=== PATIENT | female | born 2000 | race Caucasian/White ===

== ENCOUNTER → 2018-01-06 09:52 | Outpatient (CLI) | payer OTHER, SELFPAY ==
[2018-01-06] VITALS (11 sets, daily range): BP systolic 110–146; BP diastolic 67–88; PULSE 61–98; RESP 16–18; TEMP 36.1–36.9; O2SAT 95–100; BMI 30.1
[2018-01-06] MEDS: 0.9% Normal Saline 1,000 ML 150 ML IV (10:16)
[2018-01-06] MEDS: LORazepam 2 MG/ML Syringe 1 MG IV (10:22)
[2018-01-06] MEDS: Ondansetron 4 MG/2 ML Vial 8 MG IV (10:45)
[2018-01-06] MEDS: MethylPREDNISolone 125 MG/2 ML Vial IV (11:03)
[2018-01-06] MEDS: Ketorolac 30 MG/ML Syringe IV ×2 (11:06→14:04)
[2018-01-06] MEDS: Dihydroergotamine 1 MG/ML Ampul 0.5 MG IV ×2 (11:17→11:46)
[2018-01-06] MEDS: Dihydroergotamine 1 MG/ML Ampul IV (14:52)
== END ==
PROVIDERS: Family Provider Pediatrics; PCP Pediatrics
DX: G43.119 Migraine with aura, intractable, without status migrainosus (principal)
CPT/HCPCS: 96361 ×5; 96374; 96375 ×4; J7030; A4216; J1110; J2405

== ENCOUNTER → 2018-01-07 09:46 | Outpatient (CLI) | payer OTHER, SELFPAY ==
[2018-01-07] VITALS (9 sets, daily range): BP systolic 109–133; BP diastolic 67–87; PULSE 67–98; RESP 16–18; TEMP 36.4–36.6; O2SAT 96–99; BMI 32.1
[2018-01-07] MEDS: 0.9% Normal Saline 1,000 ML 150 ML IV (10:19)
[2018-01-07] MEDS: LORazepam 2 MG/ML Syringe 1 MG IV (10:31)
[2018-01-07] MEDS: Ondansetron 4 MG/2 ML Vial 8 MG IV (10:48)
[2018-01-07] MEDS: Ketorolac 30 MG/ML Syringe IV ×2 (10:52→13:54)
[2018-01-07] MEDS: MethylPREDNISolone 125 MG/2 ML Vial IV (10:52)
[2018-01-07] MEDS: Dihydroergotamine 1 MG/ML Ampul 0.5 MG IV ×2 (11:12→11:48)
[2018-01-07] MEDS: Dihydroergotamine 1 MG/ML Ampul IV (14:59)
== END ==
PROVIDERS: Family Provider Pediatrics; PCP Pediatrics; Visit Provider Psychiatry & Neurology Neurology
DX: G43.119 Migraine with aura, intractable, without status migrainosus (principal)
CPT/HCPCS: 96361 ×5; 96374; 96375 ×4; J7030; A4216; J1110; J2405

== ENCOUNTER 2018-01-08 08:05 | Outpatient (CLI) | payer OTHER, SELFPAY ==
[2018-01-08] VITALS (13 sets, daily range): BP systolic 124–155; BP diastolic 66–91; PULSE 69–85; RESP 14–28; TEMP 36.7–36.9; O2SAT 96–98
[2018-01-08] MEDS: 0.9% Normal Saline 1,000 ML 150 ML IV (08:57)
[2018-01-08] MEDS: LORazepam 2 MG/ML Syringe 1 MG IV (09:00)
[2018-01-08] MEDS: Ondansetron 4 MG/2 ML Vial 8 MG IV (09:20)
[2018-01-08] MEDS: 0.9% NaCl Peripheral Flush Adult/Peds IV (09:24)
[2018-01-08] MEDS: Ketorolac 30 MG/ML Syringe IV ×2 (09:30→12:30)
[2018-01-08] MEDS: Dihydroergotamine 1 MG/ML Ampul 0.5 MG IV ×2 (09:30→10:00)
[2018-01-08] MEDS: MethylPREDNISolone 125 MG/2 ML Vial IV (09:30)
[2018-01-08] MEDS: Dihydroergotamine 1 MG/ML Ampul IV (12:30)
== END 2018-01-08 13:10 | disposition home or self-care (01) ==
LOC: MEDOUTP 08:07 → ICU 08:44
PROVIDERS: Family Provider Pediatrics; PCP Pediatrics
DX: G43.119 Migraine with aura, intractable, without status migrainosus (principal)
CPT/HCPCS: 96361 ×4; 96374; 96375 ×4; J7030; A4216; J1110; J2405

== ENCOUNTER 2018-05-21 09:04 | Emergency (ER) | payer OTHER, SELFPAY ==
[2018-05-21 09:05] VITALS: BP 127/72; PULSE 97; RESP 18; TEMP 36.6; O2SAT 98; BMI 34.0
[2018-05-21 09:46] LABS: Red Blood Cells-Urine 0 SEEN /hpf (0-5)
[2018-05-21 09:50] LABS: Internal QC Validated? YES +Cl - CLEAR BKGD; Pregnancy, Urine Negative Negative
[2018-05-21 09:57] LABS: Absolute Lymphocyte Count 1.85 X10^3/ul (0.83-4.51); Absolute Neutrophil Count 7.7 X10^3/uL (2.0-7.7); Basophil# 0.05 X10^3/uL; Basophil% 0.5 % (0-1); Hematocrit 42.4 % (37-47); Hemoglobin 13.8 g/dl (12.0-15.0); Lymphocyte # 1.85 X10^3/ul (4.0); Lymphocyte % 17.7 % (19-41); Mean Corp Hgb Conc 32.5 g/gl (32-36); Mean Corpuscular Hgb 28.3 pg (27.0-32.0); Mean Corpuscular Volume 87.1 fL (81-99); Mean Platelet Vol. 9.2 fl (6.2-12.0); Monocyte# 0.75 X10^3/uL; Monocyte% 7.2 % (0-10); Neutrophil # 7.68 X10^3/uL (2.7-7.7); Neutrophil % 73.4 % (47-70); Platelet Count 327 K/mm3 (150-450); RBC Distribution Width CV 12.9 % (11.6-14.6); RBC Distribution Width SD 41.3 fl (35.1-43.9); Red Blood Count 4.87 M/mm3 (4.2-5.4); White Blood Count 10.5 K/mm3 (4.4-11.0)
[2018-05-21 09:58] LABS: POSITIVE COUNT NO; POSITIVE DIFFERENTIAL NO; POSITIVE MORPHOLOGY NO
[2018-05-21 10:01] LABS: Color, Urine Yellow (Yellow); Glucose, Dipstick Normal (Normal); Ketone-Dipstick 5 mg/dl (Negative); Leukocyte Esterase-Dipstick 500 /ul (Negative); Nitrite-Dipstick Negative (Negative); Occult Blood-Urine 250 /ul (Negative); Protein-Dipstick 30 mg/dl (Negative); Specific Gravity, Urine 1.025 (1.002-1.030); Urine Bilirubin Dipstick 1 mg/dL (Negative); Urine Clarity Cloudy (Clear); Urine Urobilinogen 1 mg/dl (Normal)
[2018-05-21 10:03] LABS: Bacteria RARE /hpf (None Seen); Mucous, Urine 2+ /hpf (<or=2+); Squamous Epithelial Cells - UA 10-25 SEEN /hpf (5-10); White Blood Cells 50-100 SEEN /hpf (0-5)
--- NOTE | 2018-05-21 10:09 | CT_ITS ---
STUDY: CT ABDOMEN AND PELVIS WITHOUT CONTRAST REASON FOR EXAM: Female, 17 years old. Right-sided flank pain. RADIATION DOSAGE (If Supplied By Facility): CTDIvol = ( 9.43 ) mGy, DLP = ( 508.65 ) mGycm TECHNIQUE: Transaxial images were obtained from the dome of the diaphragm to the symphysis pubis without oral contrast, and without intravenous contrast. Sagittal and coronal images were reconstructed. Individualized dose optimization techniques were used for this CT. COMPARISON: Prior comparison studies are not available for review at this time. FINDINGS: The visualized lung bases are unremarkable. The visualized portions of the heart are within normal limits. Normal liver. Normal gallbladder and extrahepatic biliary system. Normal spleen. Normal pancreas. Normal bilateral adrenal glands. Normal right kidney. Normal left kidney. Normal visualized stomach. There is no evidence for dilated bowel, ascites or pneumoperitoneum. Small bowel has a grossly normal appearance. Stool is visible throughout the colon with scattered diverticula. The appendix is visualized and appears normal. Normal abdominal aorta. The IVC is slitlike suggesting hypovolemia and/or dehydration. Normal retroperitoneum. Normal urinary bladder. Normal visualized uterus. There is a small umbilical hernia containing fat. Normal osseous structures. CT/Abdomen/Pelvis without Cont IMPRESSION: No CT evidence of acute intra-abdominal disease. Electronically Signed: Lisbeth Everett MD at 10:48 EST , Service support ,
[2018-05-21 10:10] LABS: ALB/GLOB Ratio 0.9 RATIO (0.9-2.4); AST(SGOT) 9 U/L (15-37); Alanine Aminotransfer ALT/SGPT 25 U/L (13-56); Albumin, Serum 3.7 g/dL (3.2-5.0); Alkaline Phosphatase 74 U/L (45-117); Anion Gap 9 (5-15); BUN 10 mg/dL (7-18); Calcium,Total 8.7 mg/dL (8.5-10.1); Chloride 106 mmol/L (98-107); Creatinine, Serum 0.77 mg/dL (0.55-1.02); EST Glomerular Filtration Rate 102 mL/min (>60); Est Glom Filt Rate - Afr Amer 124 mL/min (>60); Estimated Creatinine Clearance 88.68 ml/min; Globulin 3.9 g/dL (2.2-4.2); Glucose 92 mg/dL (74-106); Potassium 3.7 mmol/L (3.5-5.1); Protein, Total 7.6 g/dL (6.4-8.2); Sodium Level 140 mmol/L (136-145); Thyroid Stim Hormone (TSH) 2.64 uIU/mL (0.358-3.74)
[2018-05-21] MEDS: 0.9% Normal Saline 1,000 ML 999 ML IV (11:43)
--- NOTE | 2018-05-21 12:19 | ED.DCSUM_ITS ---
- ER Visit Summary Date of Service: 05/21/18 Chief Complaint: Flank pain History of Present Illness: The patient is a 17 F who states for the past week she has felt fatigued. Nauseated. She saw her doctor had blood work done. She called to arrange follow-up on those blood work today also noting right lower quadrant pain radiating to her flank. She states she had a temperature last night of 99.8. She denies any urinary symptoms. She tells me that that she was advised to come to the emergency department further evaluation. She states that she believes she may have appendicitis. Physical Examination: Afebrile vital signs are stable Gen: Well-nourished well-developed Head: Normocephalic atraumatic Eyes: Perrl EOMI ENT: TMs clear no rhinorrhea moist mucous membranes Neck: Supple no lymphadenopathy no JVD nontender CVS: Regular rate rhythm no murmurs normal S1-S2 Respiratory: No distress clear to auscultation bilaterally chest nontender Abdomen: Soft tenderness in the suprapubic right lower quadrant without guarding or rebound nondistended normal bowel sounds no masses Back: Nontender Extremity: Nontender no edema Skin: Normal color no rash Neuro: alert orientated ?3 CN II-XII intact normal strength sensation reflexes gait cerebellar Psych: Normal affect normal mood Test Results: CBC CMP is normal. Urinalysis 50-100 white cells and positive bacteria 10-25 epithelial cells however. Patency test is negative. CT of the abdomen pelvis demonstrated a normal appendix. No obvious ureterolithiasis. Emergency Department Course and Treatment: Patient is allergic to Bactrim/sulfa medicine. She was placed on Macrobid. Follow-up with primary care. Impression: 1. Acute abdominal pain 2. Acute cystitis This note was generated with [employer] dictation software. It may contain incorrect words, spelling, and punctuation that were not noted in review of the chart prior to signing ED Disposition - Plan for ED Patient: Disposition: Home or Assisted Living Chief Complaint: Abd Pain Instructions: ED UTI Cystitis Female Prescriptions: Nitrofurantoin Macrocrystals [Macrobid] 100 mg PO Q12 #10 cap Referrals: Dario Velez MD [Primary Care Provider] - 1 Week
== END 2018-05-21 13:18 | disposition home or self-care (01) ==
PROVIDERS: Emergency Provider Emergency Medicine; Family Provider Pediatrics; PCP Pediatrics
DX: N30.00 Acute cystitis without hematuria (principal); G43.909 Migraine, unspecified, not intractable, without status migrainosus; E66.9 Obesity, unspecified; Z79.899 Other long term (current) drug therapy
CPT/HCPCS: 74176; 80053; 81001; 81025; 84443; 85025; 87086; 87088; 87186; 96360; 96361; 99283; J7030; A4216

== ENCOUNTER → 2018-11-11 14:22 | Outpatient (CLI) | payer OTHER, SELFPAY ==
[2018-11-11 15:24] LABS: Absolute Lymphocyte Count 2.34 X10^3/ul (0.83-4.51); Absolute Neutrophil Count 4.9 X10^3/uL (2.0-7.7); Basophil# 0.05 X10^3/uL; Basophil% 0.6 % (0-1); Eosinophil# 0.09 X10^3/uL; Eosinophils% 1.1 % (0-5); Hematocrit 44.6 % (37-47); Hemoglobin 14.7 g/dl (12.0-15.0); Lymphocyte # 2.34 X10^3/ul (4.0); Lymphocyte % 29.8 % (19-41); Mean Corpuscular Hgb 29.1 pg (27.0-32.0); Mean Corpuscular Volume 88.1 fL (81-99); Mean Platelet Vol. 9.3 fl (6.2-12.0); Monocyte# 0.47 X10^3/uL; Neutrophil % 62.4 % (47-70); POSITIVE COUNT NO; POSITIVE DIFFERENTIAL NO; POSITIVE MORPHOLOGY NO; Platelet Count 359 K/mm3 (150-450); RBC Distribution Width CV 12.6 % (11.6-14.6); RBC Distribution Width SD 40.6 fl (35.1-43.9); Red Blood Count 5.06 M/mm3 (4.2-5.4); White Blood Count 7.9 K/mm3 (4.4-11.0)
[2018-11-11 15:54] LABS: ALB/GLOB Ratio 1.1 RATIO (0.9-2.4); AST(SGOT) 11 U/L (15-37); Alanine Aminotransfer ALT/SGPT 23 U/L (13-56); Albumin, Serum 3.1 g/dL (3.2-5.0); Alkaline Phosphatase 56 U/L (45-117); Anion Gap 2 (5-15); BUN 12 mg/dL (7-18); BUN/Creat Ratio 17.9 RATIO (10-20); Calcium,Total 8.1 mg/dL (8.5-10.1); Chloride 109 mmol/L (98-107); Creatinine, Serum 0.67 mg/dL (0.55-1.02); EST Glomerular Filtration Rate 119 mL/min (>60); Est Glom Filt Rate - Afr Amer 144 mL/min (>60); Globulin 2.9 g/dL (2.2-4.2); Glucose 87 mg/dL (74-106); Magnesium 1.9 mg/dL (1.6-2.6); Potassium 3.6 mmol/L (3.5-5.1); Sodium Level 139 mmol/L (136-145); Thyroid Stim Hormone (TSH) 1.71 uIU/mL (0.358-3.74)
== END ==
PROVIDERS: Family Provider Family Medicine; PCP Family Medicine; Referring Provider Family Medicine; Visit Provider Family Medicine
DX: R00.0 Tachycardia, unspecified (principal)
CPT/HCPCS: 36415; 80053; 83735; 84443; 85025

== ENCOUNTER → 2019-01-06 15:33 | Outpatient (CLI) | payer OTHER, SELFPAY | PROVIDERS: Family Provider Family Medicine; PCP Family Medicine; Referring Provider Family Medicine; Visit Provider Family Medicine | DX: N39.0 Urinary tract infection, site not specified (principal) | CPT/HCPCS: 87077; 87086; 87088; 87186 ==

== ENCOUNTER → 2019-02-25 17:55 | Outpatient (CLI) | payer OTHER, SELFPAY ==
[2019-02-25 22:02] LABS: Chlamydia Trachomatis by PCR Negative (Negative); Neisserai gonorrhoeae by PCR Negative (Negative); Probe Check PASS; Sample Adequacy Control PASS; Specimen Processing Control PASS
== END ==
PROVIDERS: Family Provider Family Medicine; PCP Family Medicine; Referring Provider Family Medicine; Visit Provider Family Medicine
DX: N39.0 Urinary tract infection, site not specified (principal)
CPT/HCPCS: 87077; 87086; 87088; 87186; 87491; 87591

== ENCOUNTER → 2019-08-03 13:54 | Outpatient (CLI) | payer OTHER, SELFPAY ==
--- NOTE | 2019-08-03 13:57 | US_ITS ---
STUDY: RENAL ULTRASOUND - COMPLETE REASON FOR EXAM: Female, 18 years old. RECURRING UTI TECHNIQUE: Ultrasound evaluation of the kidneys was performed with real-time and static perez-scale imaging. COMPARISON: CT abdomen and pelvis from 05/21/2018 FINDINGS: RIGHT KIDNEY: Normal location of the right kidney, which is normal in size. The right kidney measures 11.3 x 5.6 x 5.3 cm. There is a normal cortex of the right kidney. The renal cortex measures 2 cm. There is no right renal mass or cyst. There are no right renal calculi. There is no right hydronephrosis. DISTAL RIGHT URETER: There is non-visualization of the distal right ureter. There is no demonstrated right ureterovesical junction calculus. There is a visualized right ureteral jet. LEFT KIDNEY: Normal location of the left kidney, which is normal in size. The left kidney measures 11.9 x 5.6 x 5 cm. There is a normal cortex of the left kidney. The renal cortex measures 1.8 cm. There is no left renal mass or cyst. There are no left renal calculi. There is no left hydronephrosis. DISTAL LEFT URETER: There is non-visualization of the distal left ureter. There is no demonstrated left ureterovesical junction calculus. There is a visualized left ureteral jet. I.V.C.: The IVC is patent. BLADDER: The distended urinary bladder has a volume of 48.2 ml. . There is a normal wall thickness of the distended urinary bladder. There is no demonstrated mass within the urinary bladder. There are no demonstrated bladder calculi. US/Kidney and Bladder IMPRESSION: Normal ultrasound of the kidneys and urinary bladder. Electronically Signed: Scott Dunn, at 4:27 EST Tel , Service support ,
== END ==
PROVIDERS: PCP Family Medicine; Referring Provider Urology; Visit Provider Urology
DX: N39.0 Urinary tract infection, site not specified (principal)
CPT/HCPCS: 76770

== ENCOUNTER → 2019-12-29 17:04 | Outpatient (CLI) | payer OTHER, MEDICAID, SELFPAY ==
--- NOTE | 2019-12-29 17:10 | RAD_ITS ---
STUDY: X-RAY - LEFT FOOT CLINICAL: Female, 19 years old. Bilateral heel pain TECHNIQUE: 3 view(s) of the foot. COMPARISON: None. FINDINGS: Normal talus, calcaneus, and tarsal bones. Normal visualized subtalar, talonavicular, calcaneocuboid, tarsal and tarsometatarsal articulations. Normal metatarsi. Normal metatarsophalangeal joint of the great toe. Normal tibial and fibular sesamoid bones. Normal interphalangeal joint of the great toe. Normal phalanges of the great toe. Normal second through fifth metatarsophalangeal joints. Normal interphalangeal joints and phalanges of the lesser toes. The soft tissue structures are unremarkable. RAD/Foot min 3 Views IMPRESSION: Normal x-ray examination of the foot. Electronically Signed: Beka Medrano MD at 7:42 EDT , Service support ,
--- NOTE | 2019-12-29 17:10 | RAD_ITS ---
STUDY: X-RAY - RIGHT FOOT CLINICAL: Female, 19 years old. Bilateral heel pain TECHNIQUE: 3 view(s) of the foot. COMPARISON: None. FINDINGS: Normal talus, calcaneus, and tarsal bones. Normal visualized subtalar, talonavicular, calcaneocuboid, tarsal and tarsometatarsal articulations. Normal metatarsi. Normal metatarsophalangeal joint of the great toe. Normal tibial and fibular sesamoid bones. Normal interphalangeal joint of the great toe. Normal phalanges of the great toe. Normal second through fifth metatarsophalangeal joints. Normal interphalangeal joints and phalanges of the lesser toes. The soft tissue structures are unremarkable. RAD/Foot min 3 Views IMPRESSION: Normal x-ray examination of the foot. Electronically Signed: Beka Medrano MD at 7:43 EDT , Service support ,
== END ==
PROVIDERS: PCP Family Medicine; Referring Provider Family Medicine; Visit Provider Family Medicine
DX: M79.672 Pain in left foot (principal); M79.671 Pain in right foot
CPT/HCPCS: 73630

== ENCOUNTER 2020-12-16 11:30 | Emergency (ER) | payer BC, MEDICAID, SELFPAY ==
[2020-12-16 11:30] VITALS: BP 140/93; PULSE 96; RESP 18; TEMP 36.6; O2SAT 98; BMI 37.2
--- NOTE | 2020-12-16 12:51 | US_ITS ---
STUDY: ULTRASOUND OF THE FEMALE PELVIS - COMPLETE REASON FOR EXAM: Female, 20 years old. Pelvic pain, vaginal bleeding , ? IUD placement LMP: 11/14/2020 TECHNIQUE: Transvaginal TECHNICAL QUALITY: Adequate. COMPARISON: None. FINDINGS: The uterus is anteverted and is in a midline position. The uterus measures 7.2 cm x 4.3 cm x 3.4 cm. Normal uterine cervix. The endometrium measures 4 mm in thickness, and is hyperechoic. There is no demonstrated endometrial mass. There is no demonstrated myometrial mass. I.U.D. - The patient does have an I.U.D. . It is in the lower uterine segment. The right ovary is visualized. The right ovary measures 4.1 cm x 2.9 cm x 1.6 cm. There is no right ovarian cyst or ovarian mass. There is no visualized right adnexal mass or complex lesion. There is normal arterial and normal venous vascularity. The left ovary is visualized. The left ovary measures 2.2 cm x 2.2 cm x 2.4 cm. There is no left ovarian cyst or ovarian mass. There is no visualized left adnexal mass or complex lesion. There is normal arterial and normal venous vascularity. There is no fluid in the cul-de-sac. US/Transvaginal Non- IMPRESSION: IUD is within the lower uterine segment. Electronically Signed: Triston Brewer MD at 14:35 EDT , Service support ,
[2020-12-16 13:26] LABS: Mucous, Urine 0 SEEN /hpf (<or=2+); Squamous Epithelial Cells - UA 0 SEEN /hpf (5-10); White Blood Cells 0 SEEN /hpf (0-5)
[2020-12-16 13:28] LABS: Color, Urine Yellow (Yellow); Glucose, Dipstick Normal (Normal); Ketone-Dipstick Negative (Negative); Leukocyte Esterase-Dipstick 25 /ul (Negative); Nitrite-Dipstick Negative (Negative); Occult Blood-Urine 250 /ul (Negative); Protein-Dipstick Negative (Negative); Urine Bilirubin Dipstick Negative (Negative); Urine Clarity Sl. Cloudy (Clear); Urine Urobilinogen Normal (Normal)
[2020-12-16 13:36] LABS: Red Blood Cells-Urine > 100 SEEN /hpf (0-5)
[2020-12-16 13:37] LABS: Bacteria 1+ /hpf (None Seen); Internal QC Validated? YES +Cl - CLEAR BKGD; Pregnancy, Urine Negative Negative
[2020-12-16 14:37] VITALS: RESP 16
[2020-12-16 16:39] VITALS: BP 144/98; PULSE 88; RESP 17; O2SAT 98
--- NOTE | 2020-12-16 16:39 | EDS_ITS ---
HPI History of Present Illness Chief Complaint: Abd Pain Informant: patient Narrative Narrative: Patient is evaluated for abnormal lower pelvic cramping and bleeding. Patient had IUD placed in April 2020. States for the past month she has had increased cramping. For the past few days she had increased bleeding. She states it is bright red and thinner blood than normal. She was seen at [facility] yesterday where they said nothing look infected. They were able to visualize the strings but were concerned about the placement of the IUD. She was told she needed a ultrasound. 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 She denies any urinary symptoms. No lightheadedness or dizziness. No other complaints at this time. [facility] Medical History Migraines Tachycardia Home Medications medroxyprogesterone 150 mg IM .[id number] 01/12/16 [History Last Taken 01/11/16] diphenhydramine HCl [Benadryl] 25 mg PO Q6H PRN 05/21/18 [History Last Taken Unknown] fluoxetine 20 mg PO QHS 05/21/18 [History Last Taken 05/20/18] metoclopramide HCl 5 mg PO Q6 PRN 05/21/18 [History Last Taken Unknown] naratriptan 2.5 mg PO DAILY PRN 05/21/18 [History Last Taken Unknown] nitrofurantoin monohyd/m-cryst 100 mg PO Q12 #10 cap 05/21/18 [Rx Last Taken Unknown] propranolol 20 mg PO BID 05/21/18 [History Last Taken 05/21/18] verapamil 120 mg PO QHS 05/21/18 [History Last Taken 05/20/18] erenumab-aooe [Aimovig Autoinjector] 70 mg SUBCUT QMONTH 12/16/20 [History Last Taken Unknown] Allergy/AdvReac Type Severity Reaction Status Date / Time sulfamethoxazole Allergy Rash Verified 12/16/20 11:32 [From Bactrim] trimethoprim [From Bactrim] Allergy Rash Verified 12/16/20 11:32 Surgical History History of rhinoplasty Social History Smoking Status: Never smoker ROS ROS ED Constitutional Constitutional ED: Denies chills or fever(s) Eyes Eyes: Denies change in vision ENT ENT ED: Denies sore throat Cardiovascular Cardiovascular: Denies chest pain or palpitations Respiratory/Chest Respiratory/Chest: Denies cough or dyspnea Gastrointestinal Gastrointestinal: Reports abdominal pain; Denies diarrhea, melena, nausea or vomiting Genitourinary Genitourinary ED: Reports other Details: Abnormal vaginal bleeding ; Denies dysuria or hematuria Musculoskeletal Musculoskeletal: Denies arthralgias or myalgias Integumentary Denies rash Neurologic Neurologic: Denies headache(s) or weakness EXAM Physical Exam Const Vital Signs: 12/16/20 11:30 12/16/20 14:37 12/16/20 16:39 Temperature 98 F Temperature Source Temporal Pulse Rate 96 88 Respiratory Rate 18 16 17 Blood Pressure 140/93 H 144/98 H Blood Pressure Mean 108 Pulse Ox 98 98 Oxygen Delivery Method Room Air Positive well nourished and well developed General Appearance ED: well developed; Negative for pallor HEENT Reports moist mucous membranes Eyes PERRL and EOMs intact bilaterally Neck supple Chest Wall inspection of chest normal Resp normal respiratory effort and clear to auscultation bilaterally Cardio regular rate and regular rhythm GI normal to inspection, nondistended, normoactive bowel sounds no CVA tenderness, external exam normal, appearance of the vagina normal and appearance of the cervix normal Narrative: Small amount of red blood noted coming from the cervix. IUD strings visualized. No cervical motion tenderness. Mild tenderness on bimanual exam. Extremity normal to inspection Neuro oriented x3 Sensorium / Orientation: alert Psych mental status grossly normal Skin no rashes or lesions noted General Skin Exam: Negative for pallor MDM MDM MDM Narrative Medical decision making narrative: Patient evaluated for vaginal bleeding and cramping. Transvaginal ultrasound obtained which shows IUD in lower uterine segment. Ultrasound was reviewed with Dr. Rony Smith, who thinks that the IUD is too low in the body is trying to expel it. She recommends removal of it. IUD removed by myself. There is no complications. Patient will follow up with Dr. Griffith. Patient is counseled that she will need to find alternate form of control until she can follow-up with [employer]ER. Patient is counseled on signs and symptoms requiring return to the emergency room. Patient verbalizes agreement and understand this plan. Patient discharged home in stable and improved condition. Lab Data Labs: Laboratory Results - last 24 hr 12/16/20 13:20 Urine Color Yellow Urine Clarity Sl. Cloudy Urine pH 7.0 Ur Specific [place] 1.010 Urine Protein Negative Urine Glucose (UA) Normal Urine Ketones Negative Urine Occult Blood 250 H Urine Nitrite Negative Urine Bilirubin Negative Urine Urobilinogen Normal Ur Leukocyte Esterase 25 H Urine RBC > 100 SEEN Urine WBC 0 SEEN Ur Squamous Epith Cells 0 SEEN Urine Bacteria 1+ Urine Mucus 0 SEEN Urine Test Negative Radiography Diagnostic Testing: Radiology Impression Transvaginal US 12/16/20 12:51 IMPRESSION: IUD is within the lower uterine segment. Electronically Signed: Triston Brewer MD at 14:35 EDT , Service support , Procedures Other Procedures Procedure(s): IUD removal Speculum inserted. Cervix and IUD strings visualized. Basia clamps used to grasp onto strings and IUD is easily removed from the cervix. No immediate complications. Entire IUD is removed. Discharge Plan Triage Chief Complaint: Abd Pain ED Provider: Radha Mohamud Dx/Rx/DC Orders Clinical Impression: Malpositioned IUD Instructions: ED Control Methods Prescriptions: No Action medroxyprogesterone 150 MG/ML syringe 150 mg IM .[id number] RF: 0 metoclopramide HCl 5 MG tablet 5 mg PO Q6 PRN (Reason: Headache) RF: 0 diphenhydramine HCl [Banophen] 25 MG capsule 25 mg PO Q6H PRN (Reason: Headache) RF: 0 propranolol 20 MG tablet 20 mg PO BID RF: 0 fluoxetine 20 MG capsule 20 mg PO QHS RF: 0 naratriptan 2.5 MG tablet 2.5 mg PO DAILY PRN (Reason: Headache) RF: 0 verapamil 120 MG Cap24h.Pel 120 mg PO QHS RF: 0 nitrofurantoin monohyd/m-cryst 100 MG capsule 100 mg PO Q12 Qty: 10 RF: 0 Aimovig Autoinjector 70 mg/mL auto-injector 70 mg SUBCUT QMONTH RF: 0 Primary Care Provider: Jn Villegas Referrals: Alyx Griffith MD [STAFF PHYSICIAN] - Disposition Disposition: Home, self care Discharge Date/Time: 12/16/20 16:06
== END 2020-12-16 16:06 | disposition home or self-care (01) ==
PROVIDERS: Emergency Provider Emergency Medicine; PCP Family Medicine
DX: T83.32XA Displacement of intrauterine contraceptive device, initial encounter (principal)
CPT/HCPCS: 76830; 81001; 81025; 93976; 99282; A4216

== ENCOUNTER → 2021-02-09 14:06 | Outpatient (CLI) | payer BC, MEDICAID, SELFPAY ==
[2021-02-09 11:30] VITALS: BMI 37.2
[2021-02-14 15:25] LABS: HPV Reflexed? NOT INDICATED
== END ==
LOC: LABSPEC 14:08
PROVIDERS: PCP Family Medicine; Referring Provider Obstetrics & Gynecology; Visit Provider Obstetrics & Gynecology
DX: Z12.4 Encounter for screening for malignant neoplasm of cervix (principal)
CPT/HCPCS: 88175; G0145

== ENCOUNTER → 2021-04-28 15:13 | Outpatient (CLI) | payer BC, MEDICAID, SELFPAY | PROVIDERS: PCP Family Medicine; Referring Provider Family Medicine; Visit Provider Family Medicine | DX: B34.9 Viral infection, unspecified (principal) | CPT/HCPCS: 87635; U0005; U0003 ==

== ENCOUNTER 2021-08-09 12:31 | Outpatient (CLI) | payer BC, MEDICAID, SELFPAY ==
--- NOTE | 2021-08-09 12:41 | MRI_ITS ---
EXAM: MR RIGHT LOWER EXTREMITY WITHOUT INTRAVENOUS CONTRAST, FOOT CLINICAL INDICATION: RT FOOT TARSAL COALITION TECHNIQUE: Multiplanar and multisequence MR images of the right foot without intravenous contrast. This report was created using [employer] report generation technology. COMPARISON: xr Dec 29 2019 5:02pm. FINDINGS: LIGAMENTS: MEDIAL COLLATERAL: Unremarkable. Intact. LATERAL COLLATERAL: Unremarkable. Intact. LISFRANC: Unremarkable. Intact. TENDONS: FLEXOR: Unremarkable. Intact. EXTENSOR: Unremarkable. Intact. PERONEAL: Unremarkable. Intact. TIBIALIS ANTERIOR: Unremarkable. Intact. TIBIALIS POSTERIOR: Unremarkable. Intact. MUSCLES: Unremarkable. No edema or myositis. FLUID: Unremarkable. No joint effusion. PLANTAR FASCIA: Unremarkable. Intact. BONES/JOINTS: Unremarkable. Normal forefoot alignment. No fracture. No bone marrow edema. No joint effusion. OTHER SOFT TISSUES: Unremarkable. OTHER FINDINGS: There are no acute findings. There is no tarsal coalition. MRI/Lower Ext/No Jt/w/o IMPRESSION: There are no acute findings. There is no tarsal coalition. Electronically Signed: Vazquez Rose MD at 15:16 EST Reading Location ID and State: [facility] / [place] , Service support ,
--- NOTE | 2021-08-09 12:41 | MRI_ITS ---
EXAM: MR LEFT LOWER EXTREMITY WITHOUT INTRAVENOUS CONTRAST, FOOT CLINICAL INDICATION: LEFT FOOT TARSAL COALITION pain plantar arch into heel TECHNIQUE: Multiplanar and multisequence MR images of the left foot without intravenous contrast. This report was created using [employer] report generation technology. COMPARISON: xr Dec 29 2019 5:02pm. FINDINGS: LIGAMENTS: MEDIAL COLLATERAL: Unremarkable. Intact. LATERAL COLLATERAL: Unremarkable. Intact. LISFRANC: Unremarkable. Intact. TENDONS: FLEXOR: Unremarkable. Intact. EXTENSOR: Unremarkable. Intact. PERONEAL: Unremarkable. Intact. TIBIALIS ANTERIOR: Unremarkable. Intact. TIBIALIS POSTERIOR: Unremarkable. Intact. MUSCLES: Unremarkable. No edema or myositis. FLUID: Unremarkable. No joint effusion. PLANTAR FASCIA: Unremarkable. Intact. BONES/JOINTS: Unremarkable. Normal forefoot alignment. No fracture. No bone marrow edema. No joint effusion. OTHER SOFT TISSUES: Unremarkable. OTHER FINDINGS: There are no acute findings. There is no tarsal coalition. MRI/Lower Ext/No Jt/w/o IMPRESSION: There are no acute findings. There is no tarsal coalition. Electronically Signed: Vazquez Rose MD at 15:15 EST Reading Location ID and State: [facility] / [place] , Service support ,
== END 2021-08-09 23:59 | disposition short-term general hospital (02) ==
LOC: MRI 12:33
PROVIDERS: PCP Family Medicine; Visit Provider Podiatrist
DX: Q66.89 Other specified congenital deformities of feet (principal)
CPT/HCPCS: 73718

== ENCOUNTER → 2022-07-16 | Outpatient (CLI) | payer BC, MEDICAID, SELFPAY ==
[2022-07-16 20:28] LABS: Chlamydia Trachomatis by PCR POSITIVE (Negative); Neisserai gonorrhoeae by PCR Negative (Negative); Probe Check PASS
== END | disposition home or self-care (01) ==
PROVIDERS: PCP Family Medicine; Referring Provider Nurse Practitioner Women's Health; Visit Provider Nurse Practitioner Women's Health
DX: Z11.3 Encounter for screening for infections with a predominantly sexual mode of transmission (principal)
CPT/HCPCS: 87491; 87591

== ENCOUNTER → 2022-10-12 | Outpatient (CLI) | payer BC, MEDICAID, SELFPAY ==
[2022-10-12 21:33] LABS: Chlamydia Trachomatis by PCR Negative (Negative); Neisserai gonorrhoeae by PCR Negative (Negative); Probe Check PASS; Sample Adequacy Control PASS; Specimen Processing Control PASS
== END | disposition home or self-care (01) ==
LOC: LABSPEC 16:35
PROVIDERS: PCP Family Medicine; Referring Provider Nurse Practitioner Women's Health; Visit Provider Nurse Practitioner Women's Health
DX: A74.9 Chlamydial infection, unspecified (principal)
CPT/HCPCS: 87491; 87591